=== PATIENT | male | born 1970 | race Caucasian/White ===

== ENCOUNTER 2016-08-05 16:11 | Emergency (ER) | payer SELFPAY ==
--- NOTE | 2016-08-05 16:40 | Emergency Department Report ---
Entered by CONCHITA YANES, acting as scribe for HOLLIE SIERRA PA. Stated Complaint: N/V, ABD PAIN Time Seen by Provider: 08/05/16 16:24 - HPI History of Present Illness: Patient present to the ED c/o of lower abdominal pain that began 5 days ago. Reports diaphoresis, diarrhea, vomiting, and nausea. Took 2 imodium pills for diarrhea. - ROS Review of Systems: All system are negative unless stated in HPI above. - Exam Vital Signs: Vital Signs 08/05/16 16:22 Temperature 97.4 F L Pulse Rate 139 H Respiratory 20 Rate Blood Pressure 124/87 O2 Sat by Pulse 100 Oximetry Physical Exam: General: well nourished, well developed, 45 year old male who looks sick. Abdomen: Positive guarding. Positive rigoberto-umbilical tenderness. Normal bowel sounds. Actively vomiting MSE screening note: Focused history and physical exam performed. Due to findings the following was ordered: ED Medical Decision Making - Medical Decision Making Patient was seen by provider in triage area. Protocol activated. Patient on route to main ED room 26 to be seen by ED. INT/IV fluid CT with IV contrast. Case discussed with Dr. Davis. ED Disposition for MSE Condition: Stable This documentation as recorded by the scribe,CONCHITA YANES,accurately reflects the service I personally performed and the decisions made by me,HOLLIE SIERRA PA.
[2016-08-05] MEDS ORDERED: NACL 0.9% 1000 ML 1,000 ML IV ONE ×2 (16:41→19:54)
[2016-08-05] MEDS ORDERED: ZOFRAN IV ONE (16:49)
[2016-08-05] MEDS ORDERED: MORPHINE ONE (16:53)
[2016-08-05] MEDS ORDERED: MORPHINE IV ONE (16:56)
--- NOTE | 2016-08-05 16:58 | Emergency Department Report ---
HPI - General Chief Complaint: Nausea/Vomiting/Diarrhea Time Seen by Provider: 08/05/16 16:40 - HPI HPI: This is a 45-year-old male presents to the emergency department with a 5 to six-day history of generalized abdominal pain. It is associated with some nausea, vomiting and diarrhea. He denies any fever, dysuria, back pain, chest pain but he has had some signs of a fever with chills and sweats intermittently. The abdominal pain is intermittent. He has not been eating much when he does it worsens the abdominal pain. He was dropped off to be seen today. He does not have a primary care doctor. He denies any past medical history. He did not take anything for symptoms prior to presentation. No recent travel or sick contacts at home. ED Past Medical Hx - Past Medical History Previous Medical History?: No - Surgical History Past Surgical History?: No - Social History Smoking Status: Never Smoker Substance Use Type: Other - Medications Home Medications: Home Medications Medication Instructions Recorded Confirmed Last Taken Type Famotidine [Pepcid] 20 mg PO BID #14 tablet 08/05/16 Unknown Rx Ondansetron [Zofran Odt] 4 mg PO Q8H PRN #10 tab.rapdis 08/05/16 Unknown Rx ED Review of Systems ROS: Stated complaint: N/V, ABD PAIN Other details as noted in HPI Comment: All other systems reviewed and negative Constitutional: chills, diaphoresis Eyes: denies: eye pain, eye discharge, vision change ENT: denies: ear pain, throat pain Respiratory: denies: cough, shortness of breath, wheezing Cardiovascular: denies: chest pain, palpitations Gastrointestinal: abdominal pain, nausea, vomiting, diarrhea Genitourinary: denies: urgency, dysuria Musculoskeletal: denies: back pain, joint swelling, arthralgia Skin: denies: rash, lesions Neurological: denies: headache, weakness, paresthesias Physical Exam - Physical Exam Vital Signs: Vital Signs 08/05/16 16:22 Temperature 97.4 F L Pulse Rate 139 H Respiratory 20 Rate Blood Pressure 124/87 O2 Sat by Pulse 100 Oximetry Physical Exam: GENERAL: The patient is well-developed well-nourished. HEENT: Normocephalic. Atraumatic. Extraocular motions are intact. Patient has moist mucous membranes. Pupils equal reactive to light bilaterally. NECK: Supple. Trachea is midline. CHEST/LUNGS: Clear to auscultation. There is no respiratory distress noted. HEART/CARDIOVASCULAR: Regular. There is mild to moderate tachycardia. There is no gallop rub or murmur. ABDOMEN: Abdomen is soft. Generalized tenderness to palpation of the abdomen. No guarding or rebound tenderness. Patient has normal bowel sounds. There is no abdominal distention. SKIN: Skin is warm and dry. NEURO: The patient is awake, alert, and oriented. The patient is cooperative. The patient has no focal neurologic deficits. The patient has normal speech. MUSCULOSKELETAL: There is no tenderness or deformity. There is no limitation range of motion. There is no evidence of acute injury. ED Course Vital Signs 08/05/16 16:22 Temperature 97.4 F L Pulse Rate 139 H Respiratory 20 Rate Blood Pressure 124/87 O2 Sat by Pulse 100 Oximetry ED Medical Decision Making - Lab Data Result diagrams: 08/05/16 13:40 08/05/16 19:23 - Radiology Data Radiology results: report reviewed, image reviewed interpreted by me: Abdominal x-ray shows air-fluid levels throughout the intestines. No obvious signs of obstruction. CT of the abdomen and pelvis with IV contrast shows fluid throughout the small bowel and colon that may be infectious versus inflammatory. No free air, ascites or abscess formation. - Medical Decision Making 45 year old male presents with a five-day history of generalized abdominal pain , nausea, vomiting and diarrhea. Patient presents with some generalized abdominal pain on palpation, tachycardia. Patient has not had any fever and presents afebrile today as well. He was given IV fluid resuscitation, Zofran and something for pain. Patient's labs are mostly unremarkable including normal belly labs such as bilirubin, lipase and LFTs. There is no leukocytosis. Urinalysis does not show any urinary tract infection. The patient's abdominal x-ray shows multiple air-fluid levels throughout the abdomen. For this reason a CT was done with IV contrast of the abdomen and pelvis that did not show any obstruction, free air, ascites. There is fluid throughout the intestines but no abscess formation. Upon reevaluation with the patient he is feeling much improved. Patient's vital signs are improved as well as there is no longer any tachycardia. Patient was able to keep down fluid in the emergency department without any further nausea or vomiting. Patient will be discharged home with some Zofran and Pepcid and referrals for primary care. We discussed increasing oral rehydration. He will return to the emergency department if he is unable to keep down fluid, intractable fever, worsening of his symptoms or any acute distress. - Differential Diagnosis gastroenteritis, C. difficile, Giardia, colitis, bowel obstruction Critical Care Time: No Critical care attestation.: If time is entered above; I have spent that time in minutes in the direct care of this critically ill patient, excluding procedure time. ED Disposition Clinical Impression: Dehydration Nausea & vomiting Qualifiers: Vomiting type: unspecified Vomiting Intractability: non-intractable Qualified Code(s): R11.2 - Nausea with vomiting, unspecified Diarrhea Qualifiers: Diarrhea type: unspecified type Qualified Code(s): R19.7 - Diarrhea, unspecified Abdominal pain Qualifiers: Abdominal location: generalized Qualified Code(s): R10.84 - Generalized abdominal pain Disposition: DISCHARGED TO HOME OR SELFCARE Is pt being admited?: No Condition: Stable Instructions: Dehydration (ED), Acute Nausea and Vomiting (ED), Acute Diarrhea (ED), Abdominal Pain (ED) Additional Instructions: Please follow-up with a primary care doctor. Increase your oral rehydration. Return to the emergency department if you're unable to keep down water or fluid or appropriately rehydrate herself. Prescriptions: Famotidine [Pepcid] 20 mg PO BID #14 tablet Ondansetron [Zofran Odt] 4 mg PO Q8H PRN #10 tab.rapdis PRN Reason: Nausea Referrals: PRIMARY CARE,MD [Primary Care Provider] - 3-5 Days [facility] [Outside] - 3-5 Days [facility] [Outside] - 3-5 Days Time of Disposition: 21:12 Print Language: LITHUANIAN
[2016-08-05 17:22] LABS: Hematocrit 52.8 % (35.5-45.6); Hemoglobin 17.7 gm/dl (11.8-15.2); Mean Corpuscular HGB Conc 34 % (32-34); Mean Corpuscular Hemoglobin 28 pg (28-32); Mean Corpuscular Volume 84 fl (84-94); Red Blood Count 6.32 M/mm3 (3.65-5.03); Red Cell Distribution Width 13.9 % (13.2-15.2); White Blood Count 7.6 K/mm3 (4.5-11.0)
[2016-08-05 17:24] LABS: Alanine Aminotransferase 156 units/L (7-56); Albumin 4.6 g/dL (3.9-5); Albumin/Globulin Ratio 1.2 %; Alkaline Phosphatase 62 units/L (35-129); Bilirubin,Total 0.7 mg/dL (0.1-1.2); Total Protein 8.5 g/dL (6.3-8.2)
[2016-08-05 17:29] LABS: Bilirubin,Direct < 0.2 mg/dL (0-0.2); Bilirubin,Indirect 0.5 mg/dL
[2016-08-05 17:32] LABS: INR 1.1 (0.87-1.13)
[2016-08-05 17:33] LABS: Partial Thromboplastin Time 29.4 Sec. (24.2-36.6)
[2016-08-05 17:50] LABS: Platelet Count 311 K/mm3 (140-440)
[2016-08-05 18:01] LABS: Anion Gap TNR mmol/L; Blood Urea Nitrogen TNR mg/dL (9-20); Carbon Dioxide TNR mmol/L (22-30); Chloride TNR mmol/L (98-107); Potassium TNR mmol/L (3.6-5.0); Sodium TNR mmol/L (137-145)
[2016-08-05 18:02] LABS: BUN/Creatinine Ratio TNR; Glucose TNR mg/dL (75-100)
[2016-08-05 18:03] LABS: Calcium TNR mg/dL (8.4-10.2); Lipase TNR units/L (13-60)
[2016-08-05 18:26] LABS: Basophils % (Manual) 0 % (0.0-1.8); Blastocytes % (Manual) 0 %; Diff Status Complete; Eosinophils % (Manual) 0 % (0.0-4.3); Large Platelets Few; Platelet Estimate Consistent w Auto; RBC Morphology Normal
[2016-08-05 18:55] LABS: Bilirubin,Urine NEG (Negative); Blood,Urine SM (Negative); Ketones,Urine NEG (Negative); Leukocyte Esterase,Urine NEG (Negative); Mucus,Urine 2+ /HPF; Nitrite,Urine NEG (Negative); Urobilinogen,Urine < 2.0 mg/dL (<2.0)
[2016-08-05 19:50] LABS: Anion Gap 19 mmol/L; BUN/Creatinine Ratio 46.66; Blood Urea Nitrogen 56 mg/dL (9-20); Carbon Dioxide 24 mmol/L (22-30); Chloride 95.2 mmol/L (98-107); Glucose 119 mg/dL (75-100); Potassium 3.4 mmol/L (3.6-5.0); Sodium 135 mmol/L (137-145)
[2016-08-05] MEDS ORDERED: NACL ONE (20:00)
--- NOTE | 2016-08-05 20:45 | Cat Scan Report ---
FINAL REPORT EXAM: CT ABDOMEN PELVIS W CON HISTORY: abd pain TECHNIQUE: CT images are acquired through the Abdomen and Pelvis in portal and delayed venous phases following intravenous administration of 100 cc Omnipaque 300 contrast. Transaxial, coronal and sagittal reformations are provided. PRIORS: None FINDINGS: Partially visualized intrathoracic contents are unremarkable. The liver, gallbladder, pancreas, spleen, and adrenal glands are unremarkable. Kidneys show no worrisome lesions, hydronephrosis, or calculi. Urinary bladder is unremarkable. Fluid throughout much of the small bowel and colon. Multiple mildly dilated loops of small bowel without transition point to suggest obstruction. No adjacent fluid collection or inflammatory stranding. No colonic wall thickening. Appendix is normal. No free air, free fluid, or lymphadenopathy identified. Aorta is normal in course and caliber. Superficial soft tissues are unremarkable. No acute or aggressive appearing skeletal findings. IMPRESSION: Fluid throughout the small bowel and colon may be infectious or inflammatory in etiology. Correlation for diarrheal disease is requested. No free air, ascites or abscess formation.
[2016-08-05 23:25] VITALS: BP 118/75
--- NOTE | 2016-08-06 09:06 | XRay Report ---
Abdomen 2 views: History: Abdominal pain. Findings: Distended loops of small bowel with air-fluid levels. Minimal air in large bowel minimal stool in colon. No radiopaque calculus or abnormal calcification. Impression: Incomplete small bowel obstruction.
== END 2016-08-05 23:26 | disposition home or self-care (01) ==
LOC: ED 16:11
DX: E86.0 Dehydration (principal); R11.2 Nausea with vomiting, unspecified; R19.7 Diarrhea, unspecified; R10.84 Generalized abdominal pain
CPT/HCPCS: 36415; 74020; 74177; 80048; 80074; 81001; 83690; 83880; 85007; 85025; 85610; 85730; 86850; 86900; 86901; 87040; 87086; 96361; 96374; 96375; 99284; J2270; J2405; J7030; Q9967